=== PATIENT | male | born 1985 | race Caucasian/White ===

== ENCOUNTER 2016-12-09 08:52 | Inpatient (IN) | payer BC, OTHER ==
[~2016-12-09] VITALS: Ht 180.3 cm; Wt 87.1 kg
[2016-12-14] MEDS ORDERED: LOPERAMIDE HCL 2 MG CAPSULE PO PRN ×2 (15:15)
[2016-12-14] MEDS ORDERED: HYDROXYZINE PAMOATE 25 MG CAPSULE PO PRN (15:15)
[2016-12-14] MEDS ORDERED: ONDANSETRON ODT 4 MG TAB.RAPDIS SL PRN (15:15)
[2016-12-14] MEDS ORDERED: MAGNESIUM HYDROXIDE 30 ML LIQUID UDC PO PRN (15:15)
[2016-12-14] MEDS ORDERED: MAG HYDROX/AL HYDROX/SIMETH 30 ML LIQUID UDC PO PRN (15:15)
[2016-12-14] MEDS ORDERED: DICYCLOMINE HCL 20 MG TABLET PO PRN (15:15)
[2016-12-14] MEDS ORDERED: ONDANSETRON 4 MG/2 ML VIAL IM PRN (15:15)
[2016-12-14] MEDS ORDERED: NAPROXEN 500 MG TABLET PO PRN (15:15)
[2016-12-14] MEDS ORDERED: MIRALAX 17 GM POWD.PACK PO PRN (15:15)
[2016-12-14] MEDS ORDERED: ACETAMINOPHEN 325 MG TABLET PO PRN (15:15)
[2016-12-14] MEDS ORDERED: METHOCARBAMOL 750 MG TABLET PO PRN (15:15)
[2016-12-14 15:52] LABS: *AMPHETAMINE, URINE NEGATIVE (NEGATIVE); *BARBITURATE, URINE NEGATIVE (NEGATIVE); *CANNABINOID, URINE NEGATIVE (NEGATIVE); *COCCAINE, URINE NEGATIVE (NEGATIVE); *OPIATE, URINE NEGATIVE (NEGATIVE); *PHENCYCLIDINE SCREEN,URINE NEGATIVE (NEGATIVE)
[2016-12-14 16:00] VITALS: BP 125/75
[2016-12-14] MEDS ORDERED: BUPR1FIL3 SL (18:08)
[2016-12-14 20:25] VITALS: BP 128/75
[2016-12-14 20:57] LABS: BASOPHILS # (AUTO) 0.1 K/uL (0.0-8.0); BASOPHILS % (AUTO) 0.6 % (0.0-2.0); EOSINOPHILS # (AUTO) 0.4 K/uL (0.0-0.7); EOSINOPHILS % (AUTO) 3.4 % (0.0-7.0); HEMOGLOBIN 13.5 G/DL (14.0-18.0); LYMPHOCYTES % (AUTO) 28.6 % (20.5-51.5); MEAN CORPUSCULAR HGB CONC 36 g/dL (32.0-37.0); MEAN CORPUSCULAR VOLUME 81.9 FL (82.0-92.0); MONOCYTES # (AUTO) 0.4 K/UL (0.1-1.30); MONOCYTES % (AUTO) 4.2 % (0.0-11.0); NEUTROPHILS # (AUTO) 6.7 K/UL (1.8-8.9); NEUTROPHILS % (AUTO) 63.2 % (38.5-71.5); PLATELET COUNT (AUTO) 296 K/UL (150-450); RED BLOOD CELL COUNT(AUTO) 4.65 MIL/UL (4.7-6.1); RED CELL DISTRIBUTION WIDTH 16.4 % (11.5-14.5); WHITE BLOOD COUNT (AUTO) 10.6 K/UL (4.0-11.2)
[2016-12-14] MEDS: GABAPENTIN 300 MG CAPSULE PO SCH (21:07)
[2016-12-14] MEDS: diphenhydrAMINE 50 MG CAPSULE PO PRN (21:07)
[2016-12-14] MEDS: CLONIDINE HCL 0.1 MG TABLET PO PRN (21:07)
[2016-12-14 21:17] LABS: ALANINE AMINOTRANSFERASE 30 U/L (16-63); ALBUMIN 4.3 g/dL (3.4-5.0); ALKALINE PHOSPHATASE 95 U/L (50-136); ASPARTATE AMINOTRANSFERASE 19 U/L (15-37); BILIRUBIN,TOTAL 0.2 mg/dL (0.2-1.0); CALCIUM 8.9 mg/dL (8.5-10.1); CARBON DIOXIDE 31 mmol/L (21-32); CHLORIDE 103 mmol/L (98-107); CREATININE 1.1 mg/dL (0.6-1.3); GFR 79 mL/min (>60); GLUCOSE 99 mg/dL (74-106); MAGNESIUM 2.1 mg/dL (1.8-2.4); POTASSIUM 4.1 mmol/L (3.5-5.1); SODIUM SERUM 141 mmol/L (136-145); TOTAL PROTEIN, SERUM 7.7 g/dL (6.4-8.2); UREA NITROGEN, BLOOD 15 mg/dL (7-18)
[2016-12-14 21:18] LABS: HIV-1 p24 ANTIGEN NON REACTIVE (NONREACTIVE); HIV-1/2 ANTIBODY NON REACTIVE (NONREACTIVE)
[2016-12-14 21:24] LABS: ETHANOL < 3 MG/DL (0-0); THYROID STIMULATING HORMONE 1.285 mIU/mL (0.358-3.740)
[2016-12-15 00:20] VITALS: BP 98/60
[2016-12-15 04:20] VITALS: BP 120/67
[2016-12-15 08:00] VITALS: BP 112/77
[2016-12-15] MEDS: GABAPENTIN 300 MG CAPSULE PO SCH (08:35)
[2016-12-15] MEDS: MULTIVITAMINS,THERAPEUTIC TABLET PO SCH (08:35)
[2016-12-15] MEDS: FAMOTIDINE 20 MG TABLET PO SCH (08:35)
[2016-12-15] MEDS ORDERED: TUBERCULIN,PURIF.PROT.DERIV. 5 TU/0.1 ML TEST ID ONE (09:00)
[2016-12-15 12:00] VITALS: BP 140/68
[2016-12-15] MEDS ORDERED: METHYL SALICYLATE/MENTHOL CREAM 28 GM TUBE TOP PRN (15:15)
[2016-12-15] MEDS: BACLOFEN 20 MG TABLET PO SCH ×2 (15:21→20:38)
[2016-12-15 16:00] VITALS: BP 145/79
[2016-12-15] MEDS ORDERED: Naproxen PO (16:01)
[2016-12-15] MEDS ORDERED: Gabapentin PO ×2 (16:01)
[2016-12-15] MEDS ORDERED: METH28OI2 TOP (16:01)
[2016-12-15] MEDS ORDERED: Baclofen PO (16:01)
[2016-12-15] MEDS ORDERED: DIPH50CA37 PO (16:01)
[2016-12-15] MEDS ORDERED: DICY20TA28 PO (16:01)
[2016-12-15] MEDS ORDERED: HYDR-3895 PO (16:01)
[2016-12-15] MEDS ORDERED: Famotidine PO (16:01)
[2016-12-15] MEDS ORDERED: CLON0.1T14 PO (16:01)
[2016-12-15 18:51] LABS: *AMPHETAMINE, URINE NEGATIVE (NEGATIVE); *BARBITURATE, URINE NEGATIVE (NEGATIVE); *CANNABINOID, URINE NEGATIVE (NEGATIVE); *COCCAINE, URINE NEGATIVE (NEGATIVE); *OPIATE, URINE NEGATIVE (NEGATIVE); *PHENCYCLIDINE SCREEN,URINE NEGATIVE (NEGATIVE)
[2016-12-15 20:00] VITALS: BP 120/62
[2016-12-15] MEDS: NAPROXEN 500 MG TABLET PO SCH (20:39)
[2016-12-15] MEDS ORDERED: GABAPENTIN 300 MG CAPSULE PO SCH (21:00)
[2016-12-15] MEDS: diphenhydrAMINE 50 MG CAPSULE PO PRN (21:48)
[2016-12-15] MEDS: CLONIDINE HCL 0.1 MG TABLET PO PRN (21:49)
[2016-12-16 08:00] VITALS: BP 114/75
[2016-12-16] MEDS: BACLOFEN 20 MG TABLET PO SCH (08:07)
[2016-12-16] MEDS: MULTIVITAMINS,THERAPEUTIC TABLET PO SCH (08:08)
[2016-12-16] MEDS: FAMOTIDINE 20 MG TABLET PO SCH (08:08)
[2016-12-16] MEDS: NAPROXEN 500 MG TABLET PO SCH (08:08)
[2016-12-16] MEDS ORDERED: GABAPENTIN 300 MG CAPSULE PO SCH (09:00)
[2016-12-16 14:12] LABS: HCV AB <0.1 s/co ratio (0.0-0.9); HEPATITIS B CORE AB, IgM Negative (Negative); HEPATITIS B SURFACE AG Negative (Negative)
== END 2016-12-16 11:30 | disposition home or self-care (01) | DRG 895 ==
LOC: SRC 12-14 14:11
PROVIDERS: ADMIT Internal Medicine; ATTEND Internal Medicine
PROC: HZ2ZZZZ Detoxification Services for Substance Abuse Treatment (ICD-10-PCS; principal; 2016-12-14)
PROC: HZ31ZZZ Individual Counseling for Substance Abuse Treatment, Behavioral (ICD-10-PCS; 2016-12-15)
DX: F11.20 Opioid dependence, uncomplicated (principal); G89.29 Other chronic pain; Z82.49 Family history of ischemic heart disease and other diseases of the circulatory system; Z82.3 Family history of stroke; Z80.52 Family history of malignant neoplasm of bladder; Z81.1 Family history of alcohol abuse and dependence; Z80.1 Family history of malignant neoplasm of trachea, bronchus and lung; F17.210 Nicotine dependence, cigarettes, uncomplicated; F39 Unspecified mood [affective] disorder; D50.9 Iron deficiency anemia, unspecified; M54.5 Low back pain
CPT/HCPCS: 36415; 71010; 80307; 83735; 84443; 85025; 86592; 86705; 86803; 87340; 87806; G6040-TC; Q0163

== ENCOUNTER 2017-02-19 09:39 | Inpatient (IN) | payer BC, OTHER ==
[~2017-02-19] VITALS: Ht 180.3 cm; Wt 90.7 kg
[~2017-02-19 09:39] MED LIST: Baclofen PO; CLON0.1T14 PO; DICY20TA28 PO; DIPH50CA37 PO; Famotidine PO; Gabapentin PO; HYDR-3895 PO; METH28OI2 TOP; Naproxen PO
[2017-02-19 22:30] VITALS: BP 136/86
--- NOTE | 2017-02-19 22:30 | NUR ---
PRE-ADMISSION Pre-admission assessment performed in the intake department of [facility]. Pt is A&O x4 and ambulatory with a steady gait. He appears mildly intoxicated with hyperactive behavior. He is cooperative and answers all questions appropriately. Vital signs are B/P 136/86, HR 118, RR 18, O2 sat 95%, T 98.2, pain 0/10. He has allergies to PCN's, amoxicillin, latex, and claritin. Pt reports that he has been using heroin, methamphetamine, and marijuana. Last used heroin and meth just prior to arriving. [facility].
[2017-02-19] MEDS ORDERED: MIRALAX 17 GM POWD.PACK PO PRN (22:45)
[2017-02-19] MEDS ORDERED: ONDANSETRON 4 MG/2 ML VIAL IM PRN (22:45)
[2017-02-19] MEDS ORDERED: MAGNESIUM HYDROXIDE 30 ML LIQUID UDC PO PRN (22:45)
[2017-02-19] MEDS ORDERED: LOPERAMIDE HCL 2 MG CAPSULE PO PRN ×2 (22:45)
[2017-02-19] MEDS ORDERED: CLONIDINE HCL 0.1 MG TABLET PO PRN (22:45)
[2017-02-19] MEDS ORDERED: ACETAMINOPHEN 325 MG TABLET PO PRN (22:45)
[2017-02-19] MEDS ORDERED: BUPRENORPHINE HCL 2 MG TAB.SUBL SL PRN (22:45)
[2017-02-19] MEDS ORDERED: ONDANSETRON ODT 4 MG TAB.RAPDIS SL PRN (22:45)
[2017-02-19] MEDS ORDERED: HYDROXYZINE PAMOATE 25 MG CAPSULE PO PRN (22:45)
[2017-02-19] MEDS ORDERED: DICYCLOMINE HCL 20 MG TABLET PO PRN (22:45)
[2017-02-19] MEDS ORDERED: MAG HYDROX/AL HYDROX/SIMETH 30 ML LIQUID UDC PO PRN (22:45)
[2017-02-19] MEDS ORDERED: diphenhydrAMINE 50 MG CAPSULE PO PRN (22:45)
[2017-02-19] MEDS ORDERED: METHOCARBAMOL 750 MG TABLET PO PRN (22:45)
[2017-02-20] VITALS: BP 131/78
[2017-02-20] MEDS ORDERED: NEOM14.216 TP (00:29)
[2017-02-20] MEDS ORDERED: VARE1TAB PO (00:29)
[2017-02-20] MEDS ORDERED: CETI10CA PO (00:29)
--- NOTE | 2017-02-20 00:30 | NUR ---
ADMISSION Pt is a 31 yo male admitted to the [facility] at 2247 on 02/19/17 for medically supervised detox. He is A&O x4 and ambulatory with a steady gait. Body check performed by PROGRAM CONTROL ANALYST and skin check performed by nurse. Allergies to PCN's, amoxicillin, latex, and claritin. Pt is on a regular diet and is full code status. He appears mildly intoxicated. He is frequently moving and tachycardic with visible perspiration. He is cooperative and answers all questions appropriately. Vital signs in intake were 136/86, HR 118, RR 18, O2 sat 95%, T 98.2, pain 0/10. Pt is 5'11" and weighs 200lb. He has a PMH of melanoma on left side of the neck with surgical removal 12/2016, h/o "GI bleeding" undiagnosed, genital herpes, herniated L4 and L5 discs, spondylosis, anxiety, depression, and h/o bipolar. Pt does not currently have any s/s of GI bleeding. Lung sound clear, PERRLA, brisk capillary refill, bowel sounds present, skin is moist and intact. He does have a healing surgical scar on the left side of the neck. Pt denies N/V, SOB, and chest pain. He brought chantix, zyrtec, and neosporin from home. He also reports taking Seroquel for sleep as needed. History of use 1) Heroin inhalation 1 gram per day for the past 8 days. Last used heroin 0.75 grams 02/19/17 at 2100. He has used heroin for the past 7 years. 2) Methamphetamine inhalation 1 gram per day for the past 8 days. Last used 0.25 grams on 02/19/17 at 2100. 3) Marijuana 0.25 grams "every once in a while". Last used 0.25 grams 02/18/17. He has used marijuana for 16 years. Treatment History 1) [facility] 11/2016 2) [facility] November 02/2016 for 45 days 3) [facility] 2014 for 3 months Prior to relapsing 8 days ago, pt had not used since 11/27/16. He has a h/o smoking cigarettes but has been taking chantix to quit. He reports smoking again recently. He decided to come to treatment today because "I'm sick of using again". Symptoms when he doesn't use include "sweating, chills, body aches, restlessness, anxiety". His longest period of sobriety was 9 months in 2016. He cannot recall the name of his primary care physician. COWS on admission is 6. Symptoms are more likely r/t methamphetamine use. Urine provided for UDS. Pt was oriented to the unit and educated regarding use of the call light. All questions answered. Fall precautions in place. Bed is down with call light in reach.
[2017-02-20 02:59] LABS: *AMPHETAMINE, URINE POSITIVE (NEGATIVE); *BARBITURATE, URINE NEGATIVE (NEGATIVE); *CANNABINOID, URINE NEGATIVE (NEGATIVE); *COCCAINE, URINE NEGATIVE (NEGATIVE); *OPIATE, URINE POSITIVE (NEGATIVE); *PHENCYCLIDINE SCREEN,URINE NEGATIVE (NEGATIVE)
[2017-02-20 04:00] VITALS: BP 123/82
[2017-02-20] MEDS ORDERED: QUET25TA PO (05:26)
--- NOTE | 2017-02-20 07:09 | NUR ---
END OF SHIFT Report provided to day shift nurse. Pt is lying in bed resting. He is a 31 yo male admitted to [facility] on 02/19/17 at 2247 for opiate and meth dependence. He is A&O and ambulatory. He was slightly intoxicated on admission. Minimal s/s of withdrawal. No PRN medications administered. He drank 500mL and slept for 3 hours. Last COWS 3. Fall precautions in place. Bed is down with call light in reach.
--- NOTE | 2017-02-20 07:33 | NUR ---
START OF SHIFT NOTE: Received report from superintendent fish hatchery nurse. Pt is a 31 yo male admitted 02-19-17 for Heroin, Meth and Marijuana dependence. Pt is on prn meds at this time. Pt is alert and oriented X4. Color good, skin warm and dry. Respirations even and unlabored. Resting in bed. Safety precautions observed. Call light within reach. Will continue to monitor.
[2017-02-20] MEDS: MULTIVITAMINS,THERAPEUTIC TABLET PO SCH (08:31)
[2017-02-20] MEDS ORDERED: TUBERCULIN,PURIF.PROT.DERIV. 5 TU/0.1 ML TEST ID ONE (09:00)
--- NOTE | 2017-02-20 09:00 | NUR ---
VSS COWS 1 TB test administered LFA
[2017-02-20 09:45] VITALS: BP 123/82
[2017-02-20] MEDS ORDERED: [UNRECOGNIZED DRUG - OTHER] PO PRN (11:15)
[2017-02-20 12:55] VITALS: BP 118/63
[2017-02-20] MEDS ORDERED: Medication Not On Formulary EA ([Gabapentin] (Neurontin) 300 MG) PO SCH (17:00)
[2017-02-20] MEDS: GABAPENTIN 300 MG CAPSULE PO SCH (17:04)
[2017-02-20] MEDS: IBUPROFEN 400 MG TABLET PO PRN ×2 (17:04→21:36)
--- NOTE | 2017-02-20 17:07 | NUR ---
VSS COWS 3 Pt c/o left rib pain. Unknown how he injured himself. Motrin 400mg po prn given.
[2017-02-20 17:24] VITALS: BP 121/62
--- NOTE | 2017-02-20 18:26 | NUR ---
Pt states feels improved after Motrin prn
--- NOTE | 2017-02-20 18:41 | NUR ---
END OF SHIFT NOTE: Report given to security shift manager nurse. Pt is a 31 yo male admitted 02-19-17 for Heroin, Meth and Marijuana dependence. Pt is on prn meds at this time. Pt is alert and oriented X4. Color good, skin warm and dry. Respirations even and unlabored. Resting in bed. Vital signs have remained stable throughout shift. Last COWS 3 @ 1700. Pt received Motrin 400mg po prn @ 1700 for rib pain. Safety precautions observed. Call light within reach.
--- NOTE | 2017-02-20 19:55 | NUR ---
START OF SHIFT Received report from day shift nurse. Pt is lying in bed resting. He is a 31 yo male admitted to [facility] on 02/19 for opiate dependence. He is A&O x4 and ambulatory. Allergies to PCN's, amoxicillin, latex, and claritin. He has a PMH of melanoma on left side of the neck with surgical removal 12/2016, h/o "GI bleeding" undiagnosed, genital herpes, herniated L4 and L5 discs, spondylosis, anxiety, depression, and h/o bipolar. On admission he reported using heroin 1 gram per day for 8 days, methamphetamine 1 gram per day for 8 days, and marijuana occasionally. PRN's available for management of withdrawal symptoms. He presents with mild body aches, nasal stuffiness, and anxiety. Fall precautions in place. Bed is down with call light in reach.
[2017-02-20 20:00] VITALS: BP 110/54
[2017-02-20] MEDS ORDERED: GABAPENTIN 300 MG CAPSULE PO SCH (21:00)
[2017-02-20] MEDS ORDERED: Medication Not On Formulary EA ([Gabapentin] (Neurontin) 600 MG) PO SCH (21:00)
[2017-02-20] MEDS ORDERED: QUETIAPINE FUMARATE 25 MG TABLET PO SCH (21:00)
[2017-02-20] MEDS: BACLOFEN 20 MG TABLET PO PRN (21:36)
--- NOTE | 2017-02-20 21:38 | NUR ---
PRN Motrin and Baclofen Pt reports left back side rib pain and generalized muscle aches. PRN Motrin and Baclofen administered.
[2017-02-20] MEDS ORDERED: QUETIAPINE FUMARATE 25 MG TABLET ONE (21:41)
--- NOTE | 2017-02-20 22:38 | NUR ---
PRN Motrin and Baclofen PRN Motrin and Baclofen effective. Pt is lying in bed resting with eyes closed. Respirations even and unlabored. Safety measures in place.
[2017-02-21] VITALS: BP 83/45
--- NOTE | 2017-02-21 | NUR ---
0000 COWS deferred 0000 COWS ordered Q4HWA. Pt is lying in bed resting with eyes closed. Vital signs obtained. Safety measures in place.
[2017-02-21 04:00] VITALS: BP 107/52
--- NOTE | 2017-02-21 04:00 | NUR ---
0400 COWS deferred 0400 COWS ordered Q4HWA. Pt is lying in bed resting with eyes closed. Vital signs obtained. Safety measures in place.
--- NOTE | 2017-02-21 07:04 | NUR ---
Start of Shift Endorsement received from nightshift nurse. Pt is a 31 y/o male admitted for Heroin and meth dependence. PT has been using for 8 days at this rate. Pt's will remain under observation at this time and his symptoms will be managed with PRN medications. Pt received PRN Motrin and Baclofen. PT is tolerating the detox process and mildly withdrawing AEB COWS 4 at 0400. Pt reports sleeping 8 hours. VS WNL. Full Code. PT is alert and oriented x4. Pt is in STABLE condition at this time. Remains compliant with medication and diet regimen. All needs have been met, All safety measures in place per hospital policy. Bed in lowest position, side rails up x2, call-light within reach. Will continue to monitor
--- NOTE | 2017-02-21 07:25 | NUR ---
END OF SHIFT Report provided to day shift nurse. Pt is lying in bed resting. He is a 31 yo male admitted to [facility] on 02/19 for opiate dependence. He is A&O and ambulatory. Allergies to PCN's, amoxicillin, latex, and claritin. He has a PMH of melanoma on left side of the neck with surgical removal 12/2016, h/o "GI bleeding" undiagnosed, genital herpes, herniated L4 and L5 discs, spondylosis, anxiety, depression, and h/o bipolar. On admission he reported using heroin 1 gram per day for 8 days, methamphetamine 1 gram per day for 8 days, and marijuana occasionally. PRN's available for management of withdrawal symptoms. No taper started yet. He reports left back side rib pain and states "I may have broken a rib before I came here". He is unable to recall how it happened. MD contacted. Orders received for chest x-ray. PRN Motrin and Baclofen administered. Last COWS was 4. He drank 710mL and slept for 8 hours. Fall precautions in place. Bed is down with call light in reach.
[2017-02-21 08:00] VITALS: BP 123/66
[2017-02-21] MEDS: GABAPENTIN 300 MG CAPSULE PO SCH (08:29)
[2017-02-21] MEDS: MULTIVITAMINS,THERAPEUTIC TABLET PO SCH (08:29)
[2017-02-21] MEDS ORDERED: FAMOTIDINE PO SCH (09:00)
[2017-02-21] MEDS ORDERED: FAMOTIDINE 20 MG TABLET PO SCH (09:00)
--- NOTE | 2017-02-21 10:02 | NUR ---
Therapist prompted client about group times. Client stated he will try to attend groups today.
[2017-02-21 12:00] VITALS: BP 107/51
--- NOTE | 2017-02-21 13:10 | NUR ---
Transfer of Care Endorsed pt to [facility].
--- NOTE | 2017-02-21 13:20 | NUR ---
Endorsement Pt was endorsed to me the result of the CXR to r/o fx on left side with MD aware and notified. Recommended to f/u with chart check. Pt is alert and aware of new nurse and has gone down to smoke. Will cont. to monitor the pt.
[2017-02-21] MEDS ORDERED: PATIENT MAY USE OWN MED- MD OK PO SCH (13:30)
[2017-02-21] MEDS: IBUPROFEN 400 MG TABLET PO PRN (14:09)
--- NOTE | 2017-02-21 14:09 | NUR ---
PRN Medication Administration & MC Communication Pt is in room with agitation, anxiety, c/o muscle tension an discomfort, generalized pain 7/10 and ab cramps, V/S stable, COWS 8. Pt is very disrespectful and rude to me with demanding statements and states that he was not explained that he is getting d/c tomorrow and states that I " better call the doctor to see " him and state him on a taper. I called Dr. Bass, notified [employer] re: pt 's situation and how the pt refused the Clonidine 0.1mg and Vistaril 50mg for anxiety and that I gave the PRN's for the s/sx as ordered and how the pt is very uncooperative and disrespectful. New orders in process. I will cont. to monitor the pt.
[2017-02-21] MEDS: BACLOFEN 20 MG TABLET PO PRN (14:10)
--- NOTE | 2017-02-21 15:00 | NUR ---
Administrative Discharge Pt is A&Ox 4, ambulatory independently. Features symmetrical, PERRLA 3mm, no HARDWICK, dizziness or N/V noted. Pt denies chest pain. V/S stable. Pt states that the Baclofen is effective for his muscle tension, states that he has 3/10 generalized pain with Motrin somewhat effective and denies ab discomfort/cramps with Bentyl effective. Pt refused to have a picture taken of the wounds. Pt is very uncooperative and disrespectful to staff, MD, and administration, and refused to follow the POC, Tx plan and d/c planning; so orders for the pt to be administratively d/c'd home. Pt is given belongings, home medication and d/c summary packet and chaperoned to lobby and d/c at 1500pm.
== END 2017-02-21 15:00 | disposition home or self-care (01) | DRG 897 ==
LOC: SRC 21:37
PROVIDERS: ADMIT Internal Medicine; ATTEND Internal Medicine
PROC: HZ2ZZZZ Detoxification Services for Substance Abuse Treatment (ICD-10-PCS; principal; 2017-02-19)
DX: F11.23 Opioid dependence with withdrawal (principal); F15.10 Other stimulant abuse, uncomplicated; G89.29 Other chronic pain; Z81.8 Family history of other mental and behavioral disorders; G47.00 Insomnia, unspecified; F17.210 Nicotine dependence, cigarettes, uncomplicated; S29.9XXA Unspecified injury of thorax, initial encounter; X58.XXXA Exposure to other specified factors, initial encounter; Y92.89 Other specified places as the place of occurrence of the external cause
CPT/HCPCS: 71111; 80307; 80324; 80361; 86580